=== PATIENT | female | born 2000 | race Two or more races ===

== ENCOUNTER 2025-09-30 13:02 | Emergency (ER) | payer MEDICAID ==
[~2025-09-30] VITALS: Ht 149.9 cm; Wt 54.4 kg
[2025-09-30] MEDS ORDERED: LORAZEPAM INJ 2 MG/ML VIAL ONE (13:32)
[2025-09-30] MEDS ORDERED: OLANZAPINE 10 MG VIAL IM ONE (13:32)
[2025-09-30] MEDS: LORAZEPAM INJ 2 MG/ML VIAL IM ONE (13:39)
[2025-09-30] MEDS: OLANZAPINE 10 MG VIAL IM ONE (13:39)
[2025-09-30 14:00] LABS: PLATELET COUNT (AUTO) 290 K/uL (150-450); RED BLOOD CELL COUNT(AUTO) 4.71 MIL/uL (4.0-5.2); RED CELL DISTRIBUTION WIDTH 13.1 % (11.5-15.0); WHITE BLOOD COUNT (AUTO) 19.8 K/uL (4.3-11.0)
[2025-09-30 14:20] LABS: CALCIUM, SERUM 10.1 mg/dL (8.5-10.1); CREATININE 1.3 mg/dL (0.6-1.3); SODIUM SERUM 146 mmol/L (136-145); UREA NITROGEN, BLOOD 16 mg/dL (7-18)
[2025-09-30 14:28] LABS: ASPARTATE AMINOTRANSFERASE 18 U/L (15-37); TOTAL PROTEIN, SERUM 8.5 g/dL (6.4-8.2)
[2025-09-30 14:32] LABS: ALCOHOL, BLOOD < 3 mg/dL (0-10)
[2025-09-30 15:27] LABS: APPEARANCE,URINE SLIGHTLY CLOUDY (CLEAR); BLOOD, URINE NEGATIVE Ery/uL (NEGATIVE); LEUKOCYTE ESTERASE ,URINE 1+ (NEGATIVE); NITRITE, URINE NEGATIVE (NEGATIVE); UGLUCOSE NEGATIVE (NEGATIVE)
[2025-09-30 15:34] LABS: BARBITURATE, URINE NEGATIVE (NEGATIVE); BENZODIAZEPINE, URINE NEGATIVE (NEGATIVE); COCCAINE, URINE NEGATIVE (NEGATIVE); OPIATE, URINE NEGATIVE (NEGATIVE)
[2025-09-30 15:35] LABS: AMPHETAMINE, URINE POSITIVE (NEGATIVE); CANNABINOID, URINE POSITIVE (NEGATIVE)
[2025-09-30 16:07] LABS: ADD URINE CULTURE YES; SQUAMOUS EPITHELIAL CELL,UR Many /HPF (None Seen)
[2025-09-30] MEDS: CEPHALEXIN MONOHYDRATE 500 MG CAPSULE PO ONE (17:30)
[2025-09-30] MEDS ORDERED: LEVETIRACETAM (250 MG) 250 MG TABLET ONE (18:28)
[2025-09-30] MEDS ORDERED: CEPHALEXIN MONOHYDRATE 500 MG CAPSULE PO ONE (18:29)
[2025-09-30 20:06] VITALS: TEMP 98.3
[2025-09-30] MEDS ORDERED: TRAZODONE 50 MG TABLET ONE (23:44)
[2025-09-30] MEDS: TRAZODONE 50 MG TABLET PO ONE (23:49)
[2025-10-01 06:07] VITALS: BP 113/75; O2SAT 98
== END 2025-10-01 06:08 | disposition home or self-care (01) ==
LOC: ER 13:07
DX: F19.10 Other psychoactive substance abuse, uncomplicated (principal); F31.9 Bipolar disorder, unspecified; R10.20 Pelvic and perineal pain unspecified side; Z59.00 Homelessness unspecified; Z79.899 Other long term (current) drug therapy
CPT/HCPCS: 99285; 96372; 85025; 80048; 87086; 80076; 81001; 36415; 80143; 80320; 80307; J2060; J3490; G0480